=== PATIENT | female | born 1960 ===

== ENCOUNTER 2017-04-15 06:58 | Emergency (ER) | payer OTHER ==
[2017-04-15] MEDS ORDERED: Tetracaine 0.5% OPTH.SOL 15ML* BTL ONE (07:28)
[2017-04-15] MEDS ORDERED: Tetracaine 0.5% OPTH.SOL 4 ML* 1 DROP BTL ONE (07:29)
[2017-04-15] MEDS ORDERED: Fluorescein Sodium TOPICAL* 1 MG TEST ONE (07:33)
[2017-04-15] MEDS ORDERED: Fluorescein Sodium TOPICAL* 1 MG TEST OPHTHALMIC ONE (07:44)
[2017-04-15] MEDS ORDERED: Tetracaine 0.5% OPTH.SOL 4 ML* 1 DROP BTL RIGHT EYE ONE (07:48)
[2017-04-15 07:58] VITALS: BP 127/61
--- NOTE | 2017-04-15 08:22 | ED ---
Kishore Coley Angela, scribed for Candido Kendall MD on 04/15/17 at 0719 . Throat Pain/Nasal Congestion - HPI Summary HPI Summary: This pt is a 57 y/o female presenting to [facility] c/o right eye pain x2 days. Pt reports she was washing her car 2 days ago when some soap got into her eye. She notes that she immediately flushed her eye after this happened. Pt thought it was pink eye as her right eye is painful and is sensitive to light. She used ofloxacin 4 times yesterday. She notes rubbing her eye. Pt wears contact lenses. Pt denies prior problems with this eye. Denies unsteady gait. Allergic to penicillin. PMHx includes kidney and nonHodgkins CA (has been in remission for 12 years now) . - History of Current Complaint Chief Complaint: EDEyeProblem Time Seen by Provider: 04/15/17 07:12 Hx Obtained From: Patient Onset/Duration: Lasting Days, Still Present Severity: Moderate Associated Signs And Symptoms: Positive: Negative Cough: None - Allergies/Home Medications Allergies/Adverse Reactions: Allergies Allergy/AdvReac Type Severity Reaction Status Date / Time MS Clindamycin [Clindamycin] Allergy Severe See Comment Verified 04/14/12 17:29 MS Metoprolol Allergy Severe Constipatio Verified 04/14/12 17:30 [From Toprol XL] n MS Penicillins [Penicillins] Allergy Severe Rash Verified 04/14/12 17:28 glypizide Allergy Severe See Comment Uncoded 04/14/12 17:31 nylon sutures Allergy Severe Swelling Uncoded 04/14/12 17:30 PMH/Surg Hx/FS Hx/Imm Hx Endocrine/Hematology History: Reports: Hx Diabetes, Hx Thyroid Disease Denies: Hx Anticoagulant Therapy Cardiovascular History: Denies: Hx Hypertension, Hx Pacemaker/ICD Respiratory History: Reports: Hx Asthma Denies: Hx Chronic Obstructive Pulmonary Disease (COPD) History: Denies: Hx Renal Disease Neurological History: Denies: Hx Dementia, Hx Seizures Psychiatric History: Denies: Hx Substance Abuse - Cancer History Cancer Type, Location and Year: kidney; nonHodgkins; endometrial uterus - Surgical History Surgery Procedure, Year, and Place: hysterrectomy 2008 ; GB removed; neural surgery facial 1979; kidney removed 2005; AV node repair Infectious Disease History: No Infectious Disease History: Denies: Hx Clostridium Difficile, Hx Hepatitis, Hx Human Immunodeficiency Virus (HIV), Hx Shingles, Hx Tuberculosis, Traveled Outside the [place] in Last 30 Days - Family History Known Family History: Positive: Diabetes - Father and grandmother Family History: Father: prostate CA. Mother: thyroid CA - Social History Alcohol Use: None Substance Use Type: Reports: None Smoking Status (MU): Never Smoked Tobacco Review of Systems Negative: Fever, Chills Eyes: Other - right eye pain Positive: Photophobia, Erythema - right eye Respiratory: Negative Gastrointestinal: Negative Genitourinary: Negative Musculoskeletal: Negative Skin: Negative Neurological: Negative All Other Systems Reviewed And Are Negative: Yes Physical Exam - Summary Physical Exam Summary: VITAL SIGNS: Reviewed. GENERAL: Patient is a well-developed and nourished female who is lying comfortable in the stretcher. Patient is not in any acute respiratory distress. HEAD AND FACE: No signs of trauma. No ecchymosis, hematomas or skull depressions. No sinus tenderness. EYES: PERRLA, EOMI x 2, no nystagmus. There is slight injected conjunctiva on the right. With fluorescein uptake there is no uptake. EARS: Hearing grossly intact. Ear canals and tympanic membranes are within normal limits. MOUTH: Oropharynx within normal limits. NECK: Supple, trachea is midline, no adenopathy, no JVD, no carotid bruit, no c- spine tenderness, neck with full ROM. CHEST: Symmetric, no tenderness at palpation LUNGS: Clear to auscultation bilaterally. No wheezing or crackles. CVS: Regular rate and rhythm, S1 and S2 present, no murmurs or gallops appreciated. ABDOMEN: Soft, non-tender. No signs of distention. No rebound no guarding, and no masses palpated. Bowel sounds are normal. EXTREMITIES: FROM in all major joints, no edema, no cyanosis or clubbing. NEURO: Alert and oriented x 3. No acute neurological deficits. Speech is normal and follows commands. SKIN: Dry and warm Triage Information Reviewed: Yes Vital Signs On Initial Exam: Initial Vitals Temp Pulse Resp BP Pulse Ox 98.8 F 80 18 112/86 96 04/15/17 07:07 04/15/17 07:07 04/15/17 07:07 04/15/17 07:07 04/15/17 07:07 Vital Signs Reviewed: Yes Diagnostics - Vital Signs Vital Signs Temp Pulse Resp BP Pulse Ox 04/15/17 07:07 98.8 F 80 18 112/86 96 - Laboratory Lab Statement: Any lab studies that have been ordered have been reviewed, and results considered in the medical decision making process. EENT Course/Dx - Course Assessment/Plan: This pt is a 57 y/o female presenting to [facility] c/o right eye pain x2 days. Pt reports she was washing her car 2 days ago when some soap got into her eye. She notes that she immediately flushed her eye after this happened. Pt thought it was pink eye as it was painful and sensitive. She used ofloxacin 4 times yesterday. She notes rubbing her eye. Pt wears contact lenses. Pt denies prior problems with this eye. Denies unsteady gait. I did a fluorescein test and there is no uptake. Visual acuity is normal 20/25. There was no corneal abrasion. No corneal ulcers. Pt has minimal pain. At this point I believe the pt may be dealing with iritis and will be referred to an wafer production lead worker. Pt understands and agrees. She is advised to stop ofloxacin until she is seen by the wafer production lead worker. Pt will be discharged will follow up from the wafer production lead worker. Pt is hemodynamically stable, alert and oriented x3. - Differential Diagnoses Differential Diagnoses: Uveitis, Other - Conjunctivitis, corneal abrassion - Diagnoses Provider Diagnoses: Uveitis vs Iritis Discharge - Discharge Plan Condition: Stable Disposition: HOME Patient Education Materials: Iritis (ED) Referrals: Erick Brewer MD [Medical Doctor] - () Gayle Thomason MD [Primary Care Provider] - Additional Instructions: Please follow up with Dr. Brewer, wafer production lead worker. RETURN TO THE ED FOR ANY WORSENING SYMPTOMS. The documentation as recorded by the Kishore fink Angela accurately reflects the service I personally performed and the decisions made by me, Candido Kendall MD.
== END 2017-04-15 07:57 | disposition home or self-care (01) ==
LOC: ED 06:58
DX: H57.12 Ocular pain, left eye (principal); E11.9 Type 2 diabetes mellitus without complications; J45.909 Unspecified asthma, uncomplicated
CPT/HCPCS: 99281; A9270-GY